=== PATIENT | female | born 1955 | race Caucasian/White ===

== ENCOUNTER 2017-03-24 05:44 | Inpatient (IN) | payer MEDICARE ==
[~2017-03-24] VITALS: Ht 167.6 cm; Wt 72.6 kg
[~2017-03-24 05:44] MED LIST: ADVAIR 250-501 EACH INH; ALBUTEROL2.5 MG/31 IH; AMBIEN 10 MG TA10 MG PO; AMBIEN 5 MG TABL5 M1 PO; AUGMENTIN 875-1 EACH PO; AUGMENTIN 875875 MG PO; AZITHROMYCIN 2250 MG PO; BUSPAR15 MG; CARDIZEM CD180 MG PO; CEFTIN 250 MG250 MG PO; CELEXA20 MG PO; CELEXA40 MG PO; CIPROFLOXACIN500 M1 PO; CLONAZEPAM 0.50.5 M1 PO; COREG6.25 MG PO; COUMADIN 3 MG TA3 M1 PO; COZAAR 25 MG TA25 M1 PO; DOXYCYCLINE 10100 M1 PO; DOXYCYCLINE 10100 MG PO; DUONEB 2.5-0.5 M3 ML INH; ENOXAPARIN80 MG/0.1 SUBQ; HEART PILL PO; HYDROCODON-ACE1 EAC7 PO; HYDROCODONE-AP1 EAC6 PO; IBUPROFEN 800800 M1 PO; IBUPROFEN 800800 MG PO; LEVAQUIN 500 M500 M2 PO; LISINOPRIL10 MG PO; LISINOPRIL20 MG PO; MEDROLDOSEPACK PO; METHOCARBAMOL500 M1 PO; MUCINEX DM TABL1 TA1 PO; MUCINEX TA600 MG/TA1 PO; MUCINEX600 MG PO; NAPROSYN500 MG PO; NEBULIZER MISCELL; NORCO 5-325 TA1 EACH PO; NORCO 7.5-3251 EACH PO; NORVASC10 MG PO; NORVASC2.5 MG PO; NORVASC5 MG PO; OMEPRAZOLE40 MG PO; OXYCODONE HCL 55 MG PO; PERCOCET 10-321 EACH PO; PERCOCET PO; POTASSIUM20 PO; PREDNISONE 10 M10 M1 PO; PREDNISONE 10 M10 MG PO; PREDNISONE 20 M20 MG PO; PREDNISONE50 MG PO; PROAIR HFA8.5 GM INH; PROTONIX40 M1 PO; PROVENTIL HFA6.7 G1 INH; ROBAXIN500 MG PO; SERTRALINE HCL50 MG PO; SINGULAIR 10 MG10 M1 PO; TESSALON PERLE100 MG PO; TRAMADOL 50 MG50 MG PO; TUMS PO; TUSSIONEX PENN473 ML PO; TYLENOL325 MG PO; ULTRAM 50MG TAB50 MG PO; VENTOLIN HFA 1818 GM INH; XANAX 0.25 MG0.25 MG PO; XANAX 0.5 MG0.5 MG PO; ZAROXOLYN 5MG TA5 MG PO; ZOFRAN ODT4 MG PO; ZPAK PO
[2017-03-24 05:46] VITALS: BP 183/126
[2017-03-24 06:09] LABS: HEMATOCRIT 40.5 % (37.0-47.0); MCH 26.7 pg (26.0-34.0); MCHC 32.1 g/dL (28.0-37.0); MCV 83.3 fL (80.0-100.0); MPV 7.5 fl. (7.2-11.1); NUCLEATED RBCS 0 /100WBC; PLATELET COUNT* 185 thou/uL (150-400); RBC 4.87 mil/uL (4.20-5.00); RDW-CV 21.8 % (10.5-14.5); WBC 9.1 thou/uL (4.0-11.0)
[2017-03-24 06:16] LABS: BE 4.3 mmol/L (-2 to +3); HCO3 25.9 mmol/L (22.0-26.0); PCO2 29.9 mmHg (35.0-45.0); PO2 63.6 mmHg (75.0-100.0); pH 7.556 (7.340-7.450)
[2017-03-24 06:18] LABS: CREATININE 0.8 mg/dL (0.6-1.3)
[2017-03-24 06:22] LABS: ALBUMIN 3.4 g/dL (3.4-5.0); TOTAL BILIRUBIN 3.1 mg/dL (<0.1-1.0); TOTAL PROTEIN 6.3 g/dL (6.4-8.2)
[2017-03-24 06:28] LABS: ABSOLUTE EOSINOPHILS 0.3 thou/uL (0.0-0.7); ABSOLUTE MONOCYTES 0.7 thou/uL (0.0-1.2); ABSOLUTE NEUTROPHILS 6.1 thou/uL (1.6-8.1)
[2017-03-24 06:29] LABS: PLATELET ESTIMATE ADEQUATE
--- NOTE | 2017-03-24 06:36 | NUR ---
PATIENT MADE AWARE URINE SPECIMEN NEEDED BUT UNABLE TO VOID AT THIS TIME
--- NOTE | 2017-03-24 07:04 | NUR ---
PT RESTING IN BED TEARFUL AND CONCRENED ABOUT CONTACT WITH GRANDCHILDREN YESTERDAY. EXPLAINED MEASURES TO CLEAN SURFACES AND BATHROOM AREA.
[2017-03-24 07:39] LABS: URINE BLOOD NEGATIVE (Negative); URINE CLARITY CLEAR; URINE COLOR YELLOW; URINE GLUCOSE-RANDOM NEGATIVE (Negative); URINE KETONES TRACE (Negative); URINE LEUKOCYTES-REFLEX NEGATIVE (Negative); URINE NITRITE-REFLEX NEGATIVE (Negative); URINE PROTEIN 2+ (Negative); URINE SPECIFIC GRAVITY >= 1.030 (1.005-1.030)
[2017-03-24 07:44] LABS: ICTOTEST (BILI CONFIRMATORY) Negative (Negative); URINE BILIRUBIN 2+ (Negative)
[2017-03-24 07:56] LABS: CASTS None Seen /LPF (None Seen); CRYSTALS None Seen /LPF (None Seen); SQUAMOUS >10 Many /LPF (0-3); URINE RBC None Seen /HPF (0-2); URINE WBC-REFLEX 0-5 Rare /HPF (0-5)
[2017-03-24 07:57] LABS: BACTERIA-REFLEX 1-9 Few /HPF (None Seen); MUCUS 4-6 Moderate strn/LPF (None Seen)
[2017-03-24 08:10] VITALS: BP 171/121
[2017-03-24 08:57] VITALS: BP 162/112
[2017-03-24 16:00] VITALS: BP 85/64
--- NOTE | 2017-03-24 18:57 | NUR ---
PATIENT ARRIVED ON UNIT FROM ER AT 0915. VITAL SIGNS AND SPO2 STABLE. PATIENT DENIES PAIN AT THIS TIME. IV CLEAN, FLUIDS INFUSING. TOLERATED ANTIBIOTICS. TOLERATED DIET, NO NAUSEA AND VOMITING. COMPLETED HOULY ROUNDING. CALL LIGHT WITHIN REACH. WILL CONTINUE TO MONITOR.
[2017-03-24 22:48] VITALS: BP 110/81
--- NOTE | 2017-03-25 06:58 | NUR ---
PT SLEPT FAIRLY WELL OVERNIGHT. CONGESTED COUGH HEARD. LUNG COARSE. RT TX GIVEN ORDERED. O2 4L. UP WITH ASSIST TO BSC TO VOID DARK SPRING URINE. RW IVF INFUSING PER PUMP, ABX AND SOLUMEDROL GIVEN ORDERED. NO LABS THIS MORNING. ABLE TO USE CALL LITE AND MAKE NEEDS KNOWN. TRAMADOL GIVEN FOR CO CHRONIC BACK PAIN WITH GOOD RESULT.
[2017-03-25 07:45] VITALS: BP 127/95
[2017-03-25 11:45] VITALS: BP 104/81
[2017-03-25 12:15] VITALS: BP 95/50
[2017-03-25 12:32] LABS: BE -15.9 mmol/L (-2 to +3); PCO2 27.7 mmHg (35.0-45.0)
[2017-03-25 12:35] LABS: HCO3 10.5 mmol/L (22.0-26.0); PO2 56.9 mmHg (75.0-100.0); pH 7.197 (7.340-7.450)
--- NOTE | 2017-03-25 13:08 | EKG ---
[place] [address] ELECTROCARDIOGRAM REPORT Name: RADHA BURR Room: [address] ADM IN .R.#: [id number] Admission: 03/24/17 Attend Phys: Eda Narvaez Discharge: Date of : 59 Report #: [id number] THIS REPORT FOR: //name// [facility] ED Test Date: 2017-03-24 Test Time: 05:54:25 Pat Name: RADHA BURR Department: Room: [address] Gender: F Measurement And Sensing Technician: KIANNA : 1955 Requested By: Fernanda Morin Order Number: [id number] Reading MD: Manish Austin Measurements Intervals [place] Rate: 71 P: AR: QRS: 115 QRSD: 115 T: -64 QT: 382 QTc: 416 Interpretive Statements Atrial fibrillation Paired ventricular premature complexes nsr,RBBB and LPFB Repol abnrm suggests ischemia, diffuse leads Artifact in lead(s) I,II,aVR,aVL,aVF,V1,V2,V3,V4,V5,V6 Compared to ECG 03/10/2017 20:34:38 Ventricular premature complex(es) now present Left posterior fascicular block now present Right bundle-branch block now present Early repolarization now present Possible ischemia now presen Electronically Signed On 03-25-2017 13:07:49 CHIMNEY MECHANIC by Manish Austin [email or web address] <ELECTRONICALLY SIGNED> By: Manish Austin MD, [facility] 03/25/17 1307 [id number] Manish Austin MD, [facility] /EPI
--- NOTE | 2017-03-25 13:47 | EKG ---
[place] [address] ELECTROCARDIOGRAM REPORT Name: RADHA BURR Room: [address] ADM IN .R.#: [id number] Admission: 03/24/17 Attend Phys: Eda Narvaez Discharge: Date of : 59 Report #: [id number] THIS REPORT FOR: //name// [facility] Test Date: 2017-03-25 Test Time: 11:39:48 Pat Name: RADHA BURR Department: Room: [address] Gender: F Presidential Support Specialist: : 1955 Requested By: Ricardo Mcfadden Order Number: [id number] Reading MD: Manish Austin Measurements Intervals [place] Rate: 61 P: 100 MA: 177 QRS: 141 QRSD: 120 T: 169 QT: 556 QTc: 561 Interpretive Statements Sinus rhythm Left atrial enlargement Consider left ventricular hypertrophy Abnormal T, consider ischemia, lateral leads Prolonged QT interval Baseline wander in lead(s) V1 Compared to ECG 03/10/2017 20:34:38 Possible ischemia now present Prolonged QT interval now present Right ventricular hypertrophy no longer present T-wave abnormality still present Electronically Signed On 03-25-2017 13:47:40 RFP WRITER by Manish Austin [email or web address] <ELECTRONICALLY SIGNED> By: Manish Austin MD, [facility] 03/25/17 1347 [id number] Manish Austin MD, [facility] /EPI
--- NOTE | 2017-03-25 16:38 | NUR ---
NOTIFIED HIRAM AT HOME/ROC THAT PT TODAY
--- NOTE | 2017-03-25 19:59 | NUR ---
UPON MORNING ASSESSMENT AT 0730, PATIENT A&OX4, ON 3L O2 VIA NC. IV RIGHT WRIST, FLUIDS INFUSSING. C/O BACK PAIN, PARTIAL RELIEF WITH PO PAIN MEDICATION. UP WITH ASSISTX1, WEAK UNSTEADY GAIT. APPROXIMATELY 1145 PATIENT STATED SHE DIDN'T FEEL GOOD, WAS NAUSIOUS AND DIZZY, AT THIS TIME PATIENT WAS GETTING UP TO SIT ON BEDSIDE CAMODE. VITAL SIGNS WERE STABLE, PHYSICIAN NOTIFIED, CONTINUED TO MONITOR. AT APPROXIMATELY 1215 PATIENT STATES SHE FELT WORSE, DENIED ANY CHEST PAIN. SOA WAS NOTED, BREATHING BECAME LABORED. PATIENT ASKING IF SHE WAS GOING TO , STATES SHE FELT LIKE SHE WAS GOING TO . RAT TEAM CALLED. PATIENT WAS BECOMING ANXIOUS, AND THRASHING AROUND. WAS ABLE TO CALM PATIENT DOWN AT THIS TIME, UNABLE TO GET A BLOOD PREASURE OR FEEL A RADIAL PULSE. PATIENT BECAME UNRESPONSIVE. STARTED CODE BLUE. SEE DOCUMENTATION. TIME OF WAS CALLED AT 1248. FAMILY NOTIFIED. ALL BELONGINGS PACKED, FAMILY CAME AND PICKED ALL BELONGINGS UP. NOTHING LEFT BEHIND.
--- NOTE | 2017-03-25 20:02 | NUR ---
[facility] PICKED UP AT 1954, ASSISTED OUT WITH SECURITY. PAPERWORK SIGNED BY SECURITY AND IS IN CHART.
== END 2017-03-25 12:48 | DRG 189 ==
LOC: M.ERS 05:44 → M.3W 07:57 → M.TBA-ER 07:57 → M.3W 08:51
PROVIDERS: Personal Emergency Response Attendant; ADMIT Internal Medicine
DX: J96.20 Acute and chronic respiratory failure, unspecified whether with hypoxia or hypercapnia (principal); J44.1 Chronic obstructive pulmonary disease with (acute) exacerbation; F32.9 Major depressive disorder, single episode, unspecified; I48.91 Unspecified atrial fibrillation; K21.9 Gastro-esophageal reflux disease without esophagitis; F17.210 Nicotine dependence, cigarettes, uncomplicated; I27.20 Pulmonary hypertension, unspecified; F41.9 Anxiety disorder, unspecified; I11.0 Hypertensive heart disease with heart failure; G89.29 Other chronic pain; M54.9 Dorsalgia, unspecified; K80.20 Calculus of gallbladder without cholecystitis without obstruction; Z79.899 Other long term (current) drug therapy; Z88.8 Allergy status to other drugs, medicaments and biological substances; Z80.41 Family history of malignant neoplasm of ovary